=== PATIENT | female | born 1940 | race Caucasian/White ===

== ENCOUNTER → 2017-01-16 | Outpatient (CLI) | payer OTHER, MEDICARE, BC ==
[~2017-01-16] MED LIST: ACTONEL 35MG TA35 MG PO; CALCIUM1 CAP PO; FISH OIL CONC1000 MG PO; HCTZ 25MG TAB25 MG PO; HCTZ 25MG25 MG PO; LIPI MAX1 SGL PO; MULTIPLE VITAMI1 CAP PO; MVI; OCTIVITE PO; OSCAL 500MG/VI500 MG PO; VYTORIN; ZOCOR 40MG40 MG PO
== END ==
LOC: COL.RAD 07:25
DX: R10.12 Left upper quadrant pain (principal)

== ENCOUNTER → 2017-04-17 | Outpatient (CLI) | payer MEDICARE, BC | LOC: MC.RAD 08:40 | DX: Z12.31 Encounter for screening mammogram for malignant neoplasm of breast (principal) ==

== ENCOUNTER → 2017-05-29 | Outpatient (CLI) | payer MEDICARE, BC | LOC: COL.VAS 15:34 | DX: R60.0 Localized edema (principal); M79.89 Other specified soft tissue disorders ==

== ENCOUNTER → 2017-06-24 | Outpatient (CLI) | payer MEDICARE, BC | LOC: COL.RAD 11:08 | DX: Z01.89 Encounter for other specified special examinations (principal) ==

== ENCOUNTER → 2017-06-25 | Outpatient (CLI) | payer MEDICARE, BC | LOC: COL.RAD 11:40 | DX: M17.11 Unilateral primary osteoarthritis, right knee (principal); M23.241 Derangement of anterior horn of lateral meniscus due to old tear or injury, right knee; M94.8X8 Other specified disorders of cartilage, other site; R60.0 Localized edema; M84.451A Pathological fracture, right femur, initial encounter for fracture; M66.0 Rupture of popliteal cyst ==

== ENCOUNTER → 2017-09-09 | Outpatient (CLI) | payer MEDICARE, BC ==
[2017-09-09 16:31] LABS: HIV 1/2 Antibodies Non-Reactive; HIV-1p24 Antigen Non-Reactive
== END ==
LOC: COL.LAB 15:22
PROVIDERS: Orthopaedic Surgery
DX: Z01.812 Encounter for preprocedural laboratory examination (principal); M17.11 Unilateral primary osteoarthritis, right knee

== ENCOUNTER → 2018-04-30 | Outpatient (CLI) | payer MEDICARE, BC | LOC: MC.RAD 08:08 | DX: Z12.31 Encounter for screening mammogram for malignant neoplasm of breast (principal) ==

== ENCOUNTER → 2019-04-22 | Outpatient (CLI) | payer MEDICARE, BC | LOC: COL.RAD 07:38 | DX: M51.17 Intervertebral disc disorders with radiculopathy, lumbosacral region (principal); M48.07 Spinal stenosis, lumbosacral region ==

== ENCOUNTER → 2019-05-10 | Outpatient (CLI) | payer MEDICARE, BC ==
[~2019-05-10] VITALS: Ht 154.9 cm; Wt 63.1 kg
[2019-05-10 09:57] VITALS: BP 171/80; PULSE 79
[2019-05-10 11:10] VITALS: BP 152/81; PULSE 75
--- NOTE | 2019-05-10 11:13 | NUR ---
PT CAN FEEL HER WAIST DOWN TO HER KNEES
--- NOTE | 2019-05-10 13:26 | NUR ---
PT HAS MOVEMENT IN HER LEFT LEG WITH NUMBNESS PRESENT. PT IS ABLE TO MOVE HER RIGHT LEG SLIGHTLY WITHOUT FEELING
[2019-05-10 14:05] VITALS: BP 157/80; PULSE 70
--- NOTE | 2019-05-10 14:25 | NUR ---
Pt able to stand, unable to move legs forward. Pt when sitting can move legs up and down in wheelchair.
--- NOTE | 2019-05-10 15:00 | NUR ---
Pt stands up without assistance. Pt ambulates across floor with standby assistance. Pt reports her legs feel much better. Pt out to car per wheelchair. Standby assistance while getting in car with driving.
== END ==
LOC: COL.RAD 09:30
DX: M48.061 Spinal stenosis, lumbar region without neurogenic claudication (principal); M51.16 Intervertebral disc disorders with radiculopathy, lumbar region
CPT/HCPCS: J3301

== ENCOUNTER → 2019-05-21 | Outpatient (CLI) | payer MEDICARE, BC ==
[~2019-05-21] MED LIST changes: +CALCIUM 600/VIT1 CA1 PO; -CALCIUM1 CAP PO; +COZAAR 50MG50 MG/TAB PO; +EPA FISH OIL1 SGL PO; -LIPI MAX1 SGL PO; +OCUVITE1 TA1 PO
== END ==
LOC: MC.RAD 14:08
DX: Z12.31 Encounter for screening mammogram for malignant neoplasm of breast (principal)

== ENCOUNTER → 2019-05-25 | Outpatient (CLI) | payer MEDICARE, BC ==
[~2019-05-25] VITALS: Ht 154.9 cm; Wt 61.8 kg
[2019-05-25 09:31] VITALS: BP 157/81; PULSE 83
[2019-05-25 10:45] VITALS: BP 159/92; PULSE 74
--- NOTE | 2019-05-25 11:05 | NUR ---
Pt able to walk across floor withou difficulty. Pt up and into wheelchair. Pt out to car, pt up and into car without difficulty. Denies pain.
== END ==
LOC: COL.RAD 05-17 13:00
DX: M51.36 Other intervertebral disc degeneration, lumbar region (principal); M48.061 Spinal stenosis, lumbar region without neurogenic claudication
CPT/HCPCS: J3301

== ENCOUNTER → 2020-05-23 | Outpatient (CLI) | payer MEDICARE, BC | LOC: MC.RAD 09:16 | DX: Z12.31 Encounter for screening mammogram for malignant neoplasm of breast (principal) ==

== ENCOUNTER → 2021-02-12 | Outpatient (CLI) | payer MEDICARE, BC ==
[~2021-02-12] VITALS: Ht 154.9 cm; Wt 60.0 kg
[~2021-02-12] MED LIST changes: +HYZAAR 25 MG-101 TAB PO; -MULTIPLE VITAMI1 CAP PO; +MULTIPLE VITAMI1 TA5 PO
[2021-02-12 10:18] VITALS: PULSE 68
[2021-02-12 11:35] VITALS: BP 169/86; PULSE 73
== END ==
LOC: COL.RAD 09:30
DX: M51.16 Intervertebral disc disorders with radiculopathy, lumbar region (principal)
CPT/HCPCS: J3301

== ENCOUNTER → 2021-03-06 | Outpatient (CLI) | payer MEDICARE, BC ==
[~2021-03-06] VITALS: Ht 154.9 cm; Wt 58.9 kg
[2021-03-06 12:50] VITALS: BP 157/63; PULSE 87
[2021-03-06 13:50] VITALS: BP 160/76; PULSE 78
== END ==
LOC: COL.RAD 12:15
DX: M51.36 Other intervertebral disc degeneration, lumbar region (principal); M48.061 Spinal stenosis, lumbar region without neurogenic claudication
CPT/HCPCS: J3301

== ENCOUNTER → 2021-03-30 | Outpatient (CLI) | payer MEDICARE, BC ==
[~2021-03-30] VITALS: Ht 154.9 cm; Wt 59.0 kg
[2021-03-30 10:04] VITALS: BP 158/86; PULSE 69
--- NOTE | 2021-03-30 10:45 | NUR ---
pt states pain in her back and left leg is 7-8/10 mostly achy.
== END ==
LOC: COL.RAD 09:14
DX: M54.42 Lumbago with sciatica, left side (principal); M48.061 Spinal stenosis, lumbar region without neurogenic claudication
CPT/HCPCS: J3301

== ENCOUNTER → 2021-06-13 | Outpatient (CLI) | payer MEDICARE, BC | LOC: MC.RAD 09:22 | DX: Z12.31 Encounter for screening mammogram for malignant neoplasm of breast (principal) ==

== ENCOUNTER → 2022-06-18 | Outpatient (CLI) | payer MEDICARE, BC | LOC: MC.RAD 09:58 | DX: Z12.31 Encounter for screening mammogram for malignant neoplasm of breast (principal) ==